=== PATIENT | male | born 1995 | race Caucasian/White ===

== ENCOUNTER 2021-02-09 07:00 | Emergency (ER) | payer MEDICAID ==
[~2021-02-09] VITALS: Ht 170.2 cm; Wt 86.4 kg
[~2021-02-09 07:00] MED LIST: ALBU6.7H3 IH
[2021-02-09 07:18] VITALS: BP 138/94
[2021-02-09] MEDS ORDERED: acetaminophen 325mg tablet PO ONE (07:25)
[2021-02-09] MEDS ORDERED: ondansetron 4mg rapidly disintigrating tab PO ONE (07:25)
[2021-02-09] MEDS ORDERED: ALBU8HFA PO (07:55)
[2021-02-09] MEDS ORDERED: ONDA4TAB12 PO (07:55)
== END 2021-02-09 08:11 | disposition home or self-care (01) ==
LOC: ER 07:01
DX: R05 Cough (principal); Z20.822 Contact with and (suspected) exposure to COVID-19; R11.2 Nausea with vomiting, unspecified; R50.9 Fever, unspecified; Z91.048 Other nonmedicinal substance allergy status; Z79.899 Other long term (current) drug therapy
CPT/HCPCS: 87635; 99283; C9803